=== PATIENT | female | born 1975 | race Caucasian/White ===

== ENCOUNTER 2016-03-01 08:31 | Outpatient (CLI) | payer OTHER | END 2016-03-01 08:32 | disposition home or self-care (01) | DX: F32.9 Major depressive disorder, single episode, unspecified (principal); E78.5 Hyperlipidemia, unspecified; E55.9 Vitamin D deficiency, unspecified ==

== ENCOUNTER 2017-03-29 08:27 | Outpatient (CLI) | payer OTHER ==
[2017-03-29 12:12] LABS: CALCIUM 8.4 mg/dL (8.5-10.3); CREATININE 0.8 mg/dL (0.4-1.0)
== END 2017-03-29 08:28 | disposition home or self-care (01) ==
LOC: LAB.F 08:27
PROVIDERS: ATTEND Family Medicine
DX: I10 Essential (primary) hypertension (principal)
CPT/HCPCS: 36415; 80048

== ENCOUNTER 2018-12-06 10:10 | Outpatient (CLI) | payer OTHER ==
[2018-12-06 10:20] LABS: HGB - HEMOGLOBIN 12.2 g/dL (12.0-16.0); MEAN CORPUSCULAR HEMOGLOBIN 28.7 pg (27.0-31.0); MEAN CORPUSCULAR HGB CONC 32.3 g/dL (32.0-36.0); MEAN CORPUSCULAR VOLUME 88.9 fL (81.0-99.0); MEAN PLATELET VOLUME 9.6 fL (7.9-10.8); RED BLOOD COUNT 4.25 10^6/uL (4.20-5.40); RED CELL DISTRIBUTION WIDTH 14.8 % (12.0-15.0); WHITE BLOOD COUNT 5.7 x10^3/uL (4.8-10.8)
== END 2018-12-06 10:11 | disposition home or self-care (01) ==
LOC: LAB 10:10
PROVIDERS: ATTEND Obstetrics & Gynecology
DX: N92.0 Excessive and frequent menstruation with regular cycle (principal)
CPT/HCPCS: 36415; 85027

== ENCOUNTER 2018-12-12 17:35 | Outpatient (CLI) | payer OTHER ==
--- NOTE | 2018-12-12 20:43 | Ultrasound Report ---
Reason: MENORRHAGIA, DYSMENORRHEA Procedure Date: 12/12/2018 Accession Number: [id number] / [id number] Procedure: US - Pelvic w/Transvaginal CPT Code: FULL RESULT: EXAM: PELVIC ULTRASOUND EXAM DATE: 12/12/2018 06:30 PM. CLINICAL HISTORY: MENORRHAGIA, DYSMENORRHEA. COMPARISON: OB 09/07/2005 9:48 AM. TECHNIQUE: Realtime transabdominal pelvic scan performed to identify the uterus and adnexa and as an overview of other pelvic structures, followed by transvaginal scan to provide greater detail of the uterus and adnexa, with static image documentation. FINDINGS: Uterus: 11.0 x 4.6 x 5.6 cm, volume under 53 cc. Anteverted position. Normal overall size and echotexture. Masses: None. Endometrium: 1.3 mm. Within the endometrial cavity, there is a ovoid hyperechoic polypoid mass that measures 2.1 x 0.7 x 0.6 cm. No obvious vascularity to the lesion. Cervix: Some nabothian cysts. Right Ovary: 2.7 x 2.0 x 2.6 cm, volume 7.5 cc. Normal echotexture and blood flow. Left Ovary: 4.5 x 2.2 x 2.4 cm, volume 12.3 cc. Normal echotexture and blood flow. Only seen transabdominally. Free Fluid: None. Other: None. IMPRESSION: 2.1 cm hyperechoic polypoid lesion within the endometrium probably represent endometrial polyp. Overall background endometrium does not appear thickened. RADIA
== END 2018-12-12 17:36 | disposition home or self-care (01) ==
LOC: DI 17:35
PROVIDERS: ATTEND Obstetrics & Gynecology
DX: N85.9 Noninflammatory disorder of uterus, unspecified (principal)
CPT/HCPCS: 76830; 76856

== ENCOUNTER 2018-12-25 15:18 | Outpatient (CLI) | payer OTHER ==
[2018-12-25 15:54] LABS: CALCIUM 9.1 mg/dL (8.5-10.3); CREATININE 1.1 mg/dL (0.4-1.0)
== END 2018-12-25 15:19 | disposition home or self-care (01) ==
LOC: LAB 15:18
PROVIDERS: ATTEND Obstetrics & Gynecology
DX: Z01.818 Encounter for other preprocedural examination (principal); N92.0 Excessive and frequent menstruation with regular cycle
CPT/HCPCS: 36415; 80048; 86850; 86900; 86901

== ENCOUNTER 2018-12-26 09:13 | Day surgery (SDC) | payer OTHER ==
[~2018-12-26 09:13] MED LIST: CEFAZOLIN SODIUM IN 0.9 % NACL 2 GM/100 ML BAG IV ONE
[2018-12-26] MEDS ORDERED: DEXAMETHASONE 4 MG/ML VIAL IVP ONE (09:14)
[2018-12-26] MEDS ORDERED: fentaNYL 100 MCG/2 ML VIAL IVP ONE (09:14)
[2018-12-26] MEDS ORDERED: KETOROLAC 30 MG/ML VIAL IVP ONE (09:14)
[2018-12-26] MEDS ORDERED: MIDAZOLAM 2 MG/2 ML VIAL IVP ONE (09:14)
[2018-12-26] MEDS ORDERED: PROPOFOL 200 MG/20 ML VIAL IVP ONE (09:14)
[2018-12-26] MEDS ORDERED: LACTATED RINGERS 1,000 ML IV ONE (09:18)
[2018-12-26 09:32] LABS: HCG UR QUAL NEGATIVE
[2018-12-26] MEDS ORDERED: LIDOCAINE 1%-EPI 1:100000 20 ML MDV ONE (09:50)
--- NOTE | 2018-12-26 09:50 | ANESTHESIA ---
Pre-Anesthesia VS, & Labs - Diagnosis menorrhagia - Procedure hysterscopy with D&C Vital Signs: Temp Pulse Resp BP Pulse Ox 36 C L 92 16 107/91 H 97 12/26/18 09:25 12/26/18 09:25 12/26/18 09:25 12/26/18 09:25 12/26/18 09:25 Height 5 ft 11 in Weight (kg) 152 kg - NPO >8 hours - Is Patient ?: No Home Medications and Allergies Home Medications: Ambulatory Orders Cholecalciferol (Vitamin D3) [Vitamin D3] 2,000 unit PO DAILY 12/17/18 Mirtazapine [Remeron] 15 mg PO QPM 12/17/18 Multivitamin [Multiple Vitamins] 1 each PO DAILY 12/17/18 Citalopram [CeleXA] 30 mg PO DAILY 08/29/12 Cholecalciferol (Vitamin D3) [Vitamin D3] 2,000 unit PO DAILY 12/17/18 Mirtazapine [Remeron] 15 mg PO QPM 12/17/18 Multivitamin [Multiple Vitamins] 1 each PO DAILY 12/17/18 Allergies/Adverse Reactions: Allergies Allergy/AdvReac Type Severity Reaction Status Date / Time No Known Drug Allergies Allergy Unverified 08/28/12 11:23 Anes History & Medical History - Anesthetic History Anesthesia Complications: reports: No previous complications - Medical History Cardiovascular: reports: None Pulmonary: reports: None Gastrointestinal: reports: None, Other (BMI>40) Urinary: reports: None Neuro: reports: None Musculoskeletal: reports: None Endocrine/Autoimmune: reports: None Blood Disorders: reports: None Skin: reports: None Smoking Status: Never smoker Psychosocial: reports: Depression - Surgical History Gynecologic: Tubal ligation Exam General: Alert, Oriented x3, Cooperative, No acute distress Dental: WNL Mouth Openin Fingerbreadth Neck Mobility: Normal Mallampati classification: I Thyromental Distance: greater than 6 cm Respiratory: Lungs clear, Normal breath sounds, No respiratory distress, No accessory muscle use Cardiovascular: Regular rate, Normal S1, Normal S2, No murmurs Mental/Cognitive Status: Alert/Oriented X3, Normal for patient Plan Anesthesia Type: General Consent for Procedure(s) Verified and Reviewed: Yes Code Status: Attempt Resuscitation ASA classification: 2-Mild systemic disease Is this case an emergency?: No
[2018-12-26 09:52] LABS: CREATININE 0.8 mg/dL (0.4-1.0)
[2018-12-26] MEDS ORDERED: LIDOCAINE MPF 2%-EPI 1:200000 20 ML VIAL ONE (10:09)
--- NOTE | 2018-12-26 11:21 | OPERATIVE REPORT ---
Operative Report - General Procedure Date: 12/26/18 Planned Procedure: Hysterscopy with removal of endometrial polyp Pre-Op Diagnosis: menorrhagia, endometrial Procedure Performed: Hysterscopy with removal of endometrial polyp Post Op Diagnosis: menorrhagia, endometrial - Procedure Note Primary Surgeon: Castillo Adams MD Anesthesia Provider: Tenzin Vasquez CRNA Anesthesia Technique: General LMA Pathology: endometrial polyps IV Fluids (mL): 500 Estimated Blood Loss (mL): 50 Indications: endometrial polyps Complications: fluid deficit 440 - Other Other Information/Narrative: Dictation # [id number]
[2018-12-26] MEDS ORDERED: oxyCODONE 5 MG TABLET PO PRN (11:34)
[2018-12-26] MEDS ORDERED: LORazepam 2 MG/ML VIAL IVP PRN (11:34)
[2018-12-26] MEDS ORDERED: ONDANSETRON 4 MG/2 ML VIAL IVP PRN (11:34)
[2018-12-26] MEDS ORDERED: HYDROmorphone 0.5 MG/0.5 ML SYRINGE IVP PRN (11:34)
--- NOTE | 2018-12-26 11:57 | OPERATIVE REPORT ---
DATE OF SERVICE: 12/26/2018 Physician: Castillo Adams MD PREOPERATIVE DIAGNOSIS: Menorrhagia, suspect endometrial polyps. POSTOPERATIVE DIAGNOSIS: Menorrhagia, suspect endometrial polyps. PROCEDURE PERFORMED 1. Hysteroscopy with dilatation and curettage. 2. Resection of endometrial polyps. SURGEON: Castillo Adams MD ANESTHESIA: General via LMA with Tenzinspeedy Vasquez. ESTIMATED BLOOD LOSS: Less than 50 mL IV FLUIDS: 500 mL HYSTEROSCOPIC FLUID DEFICIT: 440 mL FINDINGS: Pelvic examination under anesthesia revealed a uterus, which is roughly 8 cm in size, is anteverted. PROCEDURE IN DETAIL: Uterus was sounded to 8 cm. Upon introducing the hysteroscope, there were numerous endometrial polyps arising from both anterior, posterior, as well as left cornual area. Following adequate anesthesia with LMA, patient was placed in the supine position. She was then placed in Naeem stirrups. At this point, she was prepped and draped in the usual fashion. A timeout was performed, which concerns were addressed. A speculum was placed in the vagina. The cervix was visualized, grasped with a single-tooth tenaculum anteriorly. The cervix was noted to be tightly closed. It was dilated up to 4 mm and then a uterine sound was sounded to 8 cm. The cervix was then dilated up to 6 cm. Unable to pass the resectoscope so it was then dilated up to 7 mm. The video hysteroscope was placed without difficulty. At this point, there were numerous polyps encountered in the endometrial cavity. The right cornu was easily visualized; however, the left cornu was obscured with endometrial polyps. The MyoSure heavy was then introduced through the canal and the entire cavity was curetted and the polyps were removed without difficulty. The endometrial cavity was re- visualized and the cavity was empty of any endometrial polyps. The corneas were also visualized and noted to be clear. At this point, the procedure was terminated. The cervix was released from the single-tooth tenaculum. Speculum was removed. Patient tolerated the procedure well and was taken to recovery in stable condition. Sponge and needle counts were correct. TD: 12/26/2018 11:36 MTDD
[2018-12-26 12:04] VITALS: BP 141/81
== END 2018-12-26 09:14 | disposition home or self-care (01) ==
LOC: SDS 09:13
PROVIDERS: ATTEND Obstetrics & Gynecology
PROC: 0UDB8ZZ Extraction of Endometrium, Via Natural or Artificial Opening Endoscopic (ICD-10-PCS; 2018-12-26)
PROC: 0UB98ZZ Excision of Uterus, Via Natural or Artificial Opening Endoscopic (ICD-10-PCS; principal; 2018-12-26 14:30)
DX: N84.0 Polyp of corpus uteri (principal); N92.0 Excessive and frequent menstruation with regular cycle; E66.9 Obesity, unspecified; Z68.42 Body mass index [BMI] 45.0-49.9, adult; Z98.51 Tubal ligation status; Z86.79 Personal history of other diseases of the circulatory system
CPT/HCPCS: 36415; 58558; 80048; 81025; A9270; J0690; J7120; 86850; 86900; 86901

== ENCOUNTER 2019-07-18 07:47 | Outpatient (CLI) | payer OTHER ==
[2019-07-18 08:27] LABS: ALBUMIN 3.8 g/dL (3.2-5.5); ALBUMIN/GLOBULIN RATIO 1.2 (1.0-2.2); ALKALINE PHOSPHATASE 58 IU/L (42-121); ALT ALANINE AMINOTRANSFERASE 15 IU/L (10-60); AST ASPARTATE AMINOTRANSFERASE 16 IU/L (10-42); BILIRUBIN,TOTAL 0.4 mg/dL (0.2-1.0); BUN - BLOOD UREA NITROGEN 13 mg/dL (6-20); CARBON DIOXIDE - CO2 27 mmol/L (21-32); CHLORIDE 104 mmol/L (101-111); CHOL/HDL RATIO 5.6 (<4.4); CHOLESTEROL 212 mg/dL; CREATININE 0.9 mg/dL (0.4-1.0); GLUCOSE 105 mg/dL (70-100); HDL CHOLESTEROL 38 mg/dL; LDL CHOLESTEROL,CALCULATED 136 mg/dL; LDL/HDL RATIO 3.6 (<4.4); SODIUM 140 mmol/L (135-145); TOTAL PROTEIN 6.9 g/dL (6.7-8.2); VLDL CHOLESTEROL 38 mg/dL
[2019-07-18 08:49] LABS: BASOPHILS % (AUTO) 0.7 %; EOSINOPHILS # (AUTO) 0.2 10^3/uL (0.0-0.7); HGB - HEMOGLOBIN 12.2 g/dL (12.0-16.0); LYMPHOCYTES # (AUTO) 2.7 10^3/uL (1.5-3.5); MEAN CORPUSCULAR HEMOGLOBIN 26.8 pg (27.0-31.0); MEAN CORPUSCULAR HGB CONC 30.7 g/dL (32.0-36.0); MEAN CORPUSCULAR VOLUME 87.1 fL (81.0-99.0); MEAN PLATELET VOLUME 10.7 fL (7.9-10.8); MONOCYTES # (AUTO) 0.2 10^3/uL (0.0-1.0); MONOCYTES % (AUTO) 4.5 %; NEUTROPHILS # (AUTO) 2.2 10^3/uL (1.5-6.6); NEUTROPHILS % (AUTO) 40.6 %; PLT - PLATELET COUNT 331 10^3/uL (130-450); RED BLOOD COUNT 4.56 10^6/uL (4.20-5.40); RED CELL DISTRIBUTION WIDTH 14.6 % (12.0-15.0); WHITE BLOOD COUNT 5.4 x10^3/uL (4.8-10.8)
== END 2019-07-18 07:48 | disposition home or self-care (01) ==
LOC: LAB 07:47
PROVIDERS: ATTEND Registered Nurse
DX: I10 Essential (primary) hypertension (principal); E78.00 Pure hypercholesterolemia, unspecified; F33.41 Major depressive disorder, recurrent, in partial remission
CPT/HCPCS: 36415; 80053; 80061; 83721; 84443; 85025

== ENCOUNTER 2019-12-08 08:13 | Outpatient (CLI) | payer OTHER ==
[2019-12-08 08:52] LABS: INR 1.1 (0.8-1.2); PT - PROTHROMBIN TIME 12.6 secs (9.9-12.6)
[2019-12-08 08:53] LABS: BASOPHILS % (AUTO) 0.5 %; EOSINOPHILS # (AUTO) 0.2 10^3/uL (0.0-0.7); EOSINOPHILS % (AUTO) 2.4 %; HGB - HEMOGLOBIN 12.5 g/dL (12.0-16.0); LYMPHOCYTES # (AUTO) 2.5 10^3/uL (1.5-3.5); LYMPHOCYTES % (AUTO) 40.3 %; MEAN CORPUSCULAR HGB CONC 32.3 g/dL (32.0-36.0); MEAN CORPUSCULAR VOLUME 86.6 fL (81.0-99.0); MEAN PLATELET VOLUME 10.4 fL (7.9-10.8); MONOCYTES # (AUTO) 0.4 10^3/uL (0.0-1.0); MONOCYTES % (AUTO) 6.4 %; NEUTROPHILS # (AUTO) 3.1 10^3/uL (1.5-6.6); NEUTROPHILS % (AUTO) 50.2 %; PLT - PLATELET COUNT 329 10^3/uL (130-450); RED BLOOD COUNT 4.47 10^6/uL (4.20-5.40); RED CELL DISTRIBUTION WIDTH 14.3 % (12.0-15.0); WHITE BLOOD COUNT 6.2 x10^3/uL (4.8-10.8)
[2019-12-08 09:03] LABS: PARTIAL THROMBOPLASTIN TIME 30.1 secs (24.9-33.3)
[2019-12-08 09:25] LABS: % IRON SATURATION 11 % (20-50); IRON 40 ug/dL (28-170); TOTAL IRON BINDING CAPACITY 360 ug/dL (250-450); TRANSFERRIN 257 mg/dL (192-382)
[2019-12-08 09:42] LABS: FERRITIN 9.5 ng/mL (11.0-306.8); HEMOGLOBIN A1c% 5.5 % (4.27-6.07)
[2019-12-08 09:46] LABS: FOLATE 10.39 ng/mL (5.90 - >24.8)
== END 2019-12-08 08:14 | disposition home or self-care (01) ==
LOC: LAB 08:13
PROVIDERS: ATTEND Surgery
DX: Z01.812 Encounter for preprocedural laboratory examination (principal); E63.9 Nutritional deficiency, unspecified; E55.9 Vitamin D deficiency, unspecified
CPT/HCPCS: 36415; 81599; 82306; 82607; 82728; 82746; 83036; 83540; 84425; 84466; 85025; 85610; 85730

== ENCOUNTER 2020-02-24 19:01 | Outpatient (CLI) | payer OTHER | END 2020-02-24 19:02 | disposition home or self-care (01) | LOC: COV 19:01 | PROVIDERS: ATTEND Family Medicine | DX: R07.0 Pain in throat (principal); Z20.822 Contact with and (suspected) exposure to COVID-19 ==

== ENCOUNTER 2020-07-14 08:33 | Outpatient (CLI) | payer OTHER ==
[2020-07-14 09:13] LABS: BASOPHILS % (AUTO) 0.8 %; EOSINOPHILS # (AUTO) 0.2 10^3/uL (0.0-0.7); EOSINOPHILS % (AUTO) 2.9 %; HGB - HEMOGLOBIN 13.2 g/dL (12.0-16.0); LYMPHOCYTES # (AUTO) 2.4 10^3/uL (1.5-3.5); LYMPHOCYTES % (AUTO) 46.6 %; MEAN CORPUSCULAR HEMOGLOBIN 29.8 pg (27.0-31.0); MEAN CORPUSCULAR VOLUME 90.3 fL (81.0-99.0); MEAN PLATELET VOLUME 10.7 fL (7.9-10.8); MONOCYTES # (AUTO) 0.3 10^3/uL (0.0-1.0); MONOCYTES % (AUTO) 5.3 %; NEUTROPHILS # (AUTO) 2.3 10^3/uL (1.5-6.6); NEUTROPHILS % (AUTO) 44.2 %; PLT - PLATELET COUNT 298 10^3/uL (130-450); RED BLOOD COUNT 4.43 10^6/uL (4.20-5.40); RED CELL DISTRIBUTION WIDTH 13.2 % (12.0-15.0); WHITE BLOOD COUNT 5.1 x10^3/uL (4.8-10.8)
[2020-07-14 09:21] LABS: INR 1.1 (0.8-1.2); PT - PROTHROMBIN TIME 12.3 secs (9.9-12.6)
[2020-07-14 09:29] LABS: PARTIAL THROMBOPLASTIN TIME 28.5 secs (24.9-33.3)
[2020-07-14 09:37] LABS: ALBUMIN/GLOBULIN RATIO 1.4 (1.0-2.2); ALKALINE PHOSPHATASE 47 IU/L (42-121); ALT ALANINE AMINOTRANSFERASE 15 IU/L (10-60); AST ASPARTATE AMINOTRANSFERASE 14 IU/L (10-42); BILIRUBIN,TOTAL 0.5 mg/dL (0.2-1.0); BUN - BLOOD UREA NITROGEN 14 mg/dL (6-20); CALCIUM 8.7 mg/dL (8.5-10.3); CARBON DIOXIDE - CO2 24 mmol/L (21-32); CHLORIDE 108 mmol/L (101-111); CHOLESTEROL 217 mg/dL; CREATININE 0.9 mg/dL (0.4-1.0); GFR - MDRD 68 (>89); GLUCOSE 111 mg/dL (70-100); HDL CHOLESTEROL 36 mg/dL; LDL CHOLESTEROL,CALCULATED 144 mg/dL; POTASSIUM 3.6 mmol/L (3.5-5.0); SODIUM 138 mmol/L (135-145); TOTAL PROTEIN 6.9 g/dL (6.7-8.2); TRIGLYCERIDES 186 mg/dL; VLDL CHOLESTEROL 37 mg/dL
[2020-07-14 09:41] LABS: % IRON SATURATION 22 % (20-50); IRON 67 ug/dL (28-170); TOTAL IRON BINDING CAPACITY 305 ug/dL (250-450); TRANSFERRIN 218 mg/dL (192-382)
[2020-07-14 09:48] LABS: FREE T3 4.07 pg/mL (2.5-3.9)
[2020-07-14 09:51] LABS: FERRITIN 23.5 ng/mL (11.0-306.8)
[2020-07-14 09:54] LABS: FOLATE 7.62 ng/mL (5.90 - >24.8)
[2020-07-14 09:57] LABS: THYROID STIMULATING HORMONE 0.91 uIU/mL (0.34-5.60)
[2020-07-14 12:34] LABS: ESTIMATED AVERAGE GLUCOSE 108 mg/dL (70-100); HEMOGLOBIN A1c% 5.4 % (4.27-6.07)
== END 2020-07-14 08:34 | disposition home or self-care (01) ==
LOC: LAB 08:33
PROVIDERS: ATTEND Registered Nurse
DX: Z01.812 Encounter for preprocedural laboratory examination (principal); E46 Unspecified protein-calorie malnutrition; E55.9 Vitamin D deficiency, unspecified; I10 Essential (primary) hypertension; F33.41 Major depressive disorder, recurrent, in partial remission; E78.00 Pure hypercholesterolemia, unspecified
CPT/HCPCS: 36415; 80053; 80061; 82306; 82607; 82728; 82746; 83036; 83540; 83721; 84425; 84443; 84466; 84481; 85025; 85610; 85730

== ENCOUNTER 2020-08-12 08:43 | Outpatient (CLI) | payer OTHER ==
--- NOTE | 2020-08-13 12:16 | Mammography Report ---
BILATERAL DIGITAL SCREENING MAMMOGRAM 3D/2D: 08/12/2020 CLINICAL: Baseline exam. Routine screening. No prior exams were available for comparison. There are scattered fibroglandular elements in both br easts. No significant masses, calcifications, or other findings are seen in either breast. IMPRESSION: NEGATIVE There is no mammographic evidence of malignancy. A 1 year screening mammogram is recommended. This exam was interpreted at Station ID: [id number]. NOTE: For mammograms, a report in lay terms will be sent to the patient. Approximately 15% of breast malignancies will not be visualized mammographically. In the management of a palpable breast mass, a negative mammogram must not discourage biopsy of a clinically suspicious lesion. Electronically Signed By: Popeye frost/florian:08/12/2020 09:43:26 ACR BI-RADS Category 1: Negative 3341F PARENCHYMAL PATTERN: (A) - The breast(s) demonstrate(s) scattered fibroglandular densities. BI-RADS CATEGORY: (1) - 1 RECOMMENDATION: (ANNUAL) - Recommend routine annual screening mammography. [id number] 1 year screening LATERALITY: (B)
== END 2020-08-12 08:44 | disposition home or self-care (01) ==
LOC: DI 08:43
PROVIDERS: ATTEND Advanced Practice Midwife
DX: Z12.31 Encounter for screening mammogram for malignant neoplasm of breast (principal)

== ENCOUNTER 2021-01-05 09:18 | Outpatient (CLI) | payer OTHER ==
[2021-01-05 09:49] LABS: BASOPHILS % (AUTO) 0.4 %; EOSINOPHILS # (AUTO) 0.2 10^3/uL (0.0-0.7); HCT - HEMATOCRIT 40.1 % (37.0-47.0); LYMPHOCYTES # (AUTO) 2.1 10^3/uL (1.5-3.5); LYMPHOCYTES % (AUTO) 42.6 %; MEAN CORPUSCULAR HEMOGLOBIN 29.7 pg (27.0-31.0); MEAN CORPUSCULAR HGB CONC 32.4 g/dL (32.0-36.0); MEAN CORPUSCULAR VOLUME 91.8 fL (81.0-99.0); MEAN PLATELET VOLUME 10.4 fL (7.9-10.8); MONOCYTES # (AUTO) 0.3 10^3/uL (0.0-1.0); NEUTROPHILS # (AUTO) 2.5 10^3/uL (1.5-6.6); NEUTROPHILS % (AUTO) 48.8 %; PLT - PLATELET COUNT 298 10^3/uL (130-450); RED BLOOD COUNT 4.37 10^6/uL (4.20-5.40); RED CELL DISTRIBUTION WIDTH 12.8 % (12.0-15.0)
[2021-01-05 10:14] LABS: % IRON SATURATION 20 % (20-50); ALBUMIN 4.1 g/dL (3.2-5.5); ALBUMIN/GLOBULIN RATIO 1.5 (1.0-2.2); ALKALINE PHOSPHATASE 55 IU/L (42-121); ALT ALANINE AMINOTRANSFERASE 15 IU/L (10-60); AST ASPARTATE AMINOTRANSFERASE 17 IU/L (10-42); BILIRUBIN,TOTAL 0.7 mg/dL (0.2-1.0); BUN - BLOOD UREA NITROGEN 15 mg/dL (6-20); CALCIUM 9.1 mg/dL (8.5-10.3); CARBON DIOXIDE - CO2 30 mmol/L (21-32); CHLORIDE 105 mmol/L (101-111); CHOL/HDL RATIO 5.2 (<4.4); CHOLESTEROL 206 mg/dL; CREATININE 0.8 mg/dL (0.4-1.0); GFR - MDRD 78 (>89); GLUCOSE 101 mg/dL (70-100); HDL CHOLESTEROL 40 mg/dL; IRON 66 ug/dL (28-170); LDL CHOLESTEROL,CALCULATED 137 mg/dL; LDL/HDL RATIO 3.4 (<4.4); POTASSIUM 4.2 mmol/L (3.5-5.0); SODIUM 142 mmol/L (135-145); TOTAL IRON BINDING CAPACITY 330 ug/dL (250-450); TOTAL PROTEIN 6.9 g/dL (6.7-8.2); TRANSFERRIN 236 mg/dL (192-382); TRIGLYCERIDES 143 mg/dL; VLDL CHOLESTEROL 29 mg/dL
[2021-01-05 10:24] LABS: THYROID STIMULATING HORMONE 0.73 uIU/mL (0.34-5.60)
[2021-01-05 10:29] LABS: FERRITIN 18.9 ng/mL (11.0-306.8)
[2021-01-05 10:36] LABS: FOLATE 20.46 ng/mL (5.90 - >24.8)
[2021-01-05 11:51] LABS: ESTIMATED AVERAGE GLUCOSE 103 mg/dL (70-100); HEMOGLOBIN A1c% 5.2 % (4.27-6.07)
== END 2021-01-05 09:19 | disposition home or self-care (01) ==
LOC: LAB 09:18
PROVIDERS: ATTEND Surgery
DX: E46 Unspecified protein-calorie malnutrition (principal); E66.01 Morbid (severe) obesity due to excess calories; Z98.84 Bariatric surgery status
CPT/HCPCS: 36415; 80053; 80061; 82306; 82607; 82728; 82746; 83036; 83540; 83721; 84425; 84443; 84466; 85025

== ENCOUNTER 2021-12-07 15:55 | Outpatient (CLI) | payer OTHER ==
--- NOTE | 2021-12-08 11:47 | Ultrasound Report ---
PROCEDURE: Pelvic w/Transvaginal INDICATIONS: ENDOMETRIAL POLYP. Cramping, heavy periods. TECHNIQUE: Real-time scanning was performed of the pelvic organs, with image documentation. Additional endovagi nal scanning was necessary due to incomplete visualization of the adnexal and endometrial structures by transabdominal scanning. COMPARISON: Pelvic ultrasound 12/12/2018. FINDINGS: Uterus: Uterus is anteverted and prominent in size at 2.3 x 6.7 x 6.1 cm. The myometrium is homogen eous. The endometrium measures 12 mm in combined thickness. Redemonstrated ovoid hyperechoic struct ure at the uterine cavity/endometrium measures 2.1 x 0.9 x 1.0 cm, previously 2.1 x 0.6 x 0.7 cm, sim ilar to slightly increased. Ovaries: The right ovary measures 4.7 x 2.3 x 2.7 cm, with a calculated ovarian volume of 15 cc. Th e left ovary measures 3.5 x 3.0 x 2.0 cm, with a calculated ovarian volume of 11 cc. The ovaries hav e a normal sonographic appearance. Less than 12 follicles can be seen in each ovary. No adnexal mas ses are seen. Other: No pathologic free abdominal or pelvic fluid. IMPRESSION: 1. Previously demonstrated ovoid structure at the uterine cavity/endometrium which could represent an endometrial polyp persists, similar to slightly increased in size. 2. Unremarkable sonographic appearance of the ovaries Reviewed by: Al Amezcua MD on 12/08/2021 11:46 AM PDT Approved by: Al Amezcua MD on 12/08/2021 11:46 AM PDT Station ID: [id number]
== END 2021-12-07 15:56 | disposition home or self-care (01) ==
LOC: DI 15:55
PROVIDERS: ATTEND Nurse Practitioner
DX: N84.0 Polyp of corpus uteri (principal); N92.0 Excessive and frequent menstruation with regular cycle; N94.6 Dysmenorrhea, unspecified

== ENCOUNTER 2021-12-23 14:36 | Outpatient (CLI) | payer OTHER ==
--- NOTE | 2021-12-23 16:16 | Ultrasound Report ---
PROCEDURE: Retroperitoneal INDICATIONS: CHRONIC KIDNEY DISEASE, STAGE 2 TECHNIQUE: Real-time scanning was performed of the retroperitoneal organs, with image documentation. COMPARISON: None. FINDINGS: Kidneys: Kidneys are normal in size. Right kidney measures 10.6 cm long; left kidney measures 11.5 cm long. Right renal cortical thickness is 1.3 cm; left renal cortical thickness is 1.3 cm. No hydr onephrosis, or nephrolithiasis. Focus of increased echogenicity is present in the left kidney measuri ng 8 x 5 x 6 mm as well as a second similar focus measuring 8 x 8 x 8 mm. Simple left renal parapelvi c cysts. Bladder: Pre-void bladder volume is 472 mL. Post-void residual is 20 mL. Pre-void images demonstra te no intraluminal masses or stones. On pre-void images, lateral ureteral jets are noted with color Doppler interrogation. (Of note, ureteral jets may not be detectable in up to 25% of cases due to in sufficient differences in specific gravity between ureteral and bladder urine). Miscellaneous: No free abdominal fluid. IMPRESSION: Subcentimeter foci of increased echogenicity within the left kidney suggestive of small angiomyolipom as. Recommend interval follow-up in 6 and 12 months. Reviewed by: Jackie Barajas MD on 12/23/2021 4:14 PM PST Approved by: Jackie Barajas MD on 12/23/2021 4:14 PM PST Station ID: [id number]
== END 2021-12-23 14:37 | disposition home or self-care (01) ==
LOC: DI 14:36
PROVIDERS: ATTEND Physician Assistant
DX: N18.2 Chronic kidney disease, stage 2 (mild) (principal); R93.422 Abnormal radiologic findings on diagnostic imaging of left kidney

== ENCOUNTER 2022-02-22 07:14 | Day surgery (SDC) | payer OTHER ==
[~2022-02-22 07:14] MED LIST changes: +ACETAMINOPHEN 1,000 MG/100 ML 1,000 MG/100 ML BAG IV ONE; -CEFAZOLIN SODIUM IN 0.9 % NACL 2 GM/100 ML BAG IV ONE
[2022-02-22] MEDS ORDERED: BUPIVACAINE 0.5% PF 30 ML VIAL ONE (07:26)
[2022-02-22] MEDS ORDERED: METHYLENE BLUE 0.5% 50 MG/10 ML AMPULE ONE (07:26)
[2022-02-22] MEDS ORDERED: LIDOCAINE MPF 2%-EPI 1:200000 20 ML VIAL ONE (07:26)
[2022-02-22] MEDS ORDERED: SUGAMMADEX 200 MG/2 ML VIAL IVP ONE (07:30)
[2022-02-22] MEDS ORDERED: DEXAMETHASONE 4 MG/ML VIAL ONE (07:30)
[2022-02-22] MEDS ORDERED: PROPOFOL 200 MG/20 ML VIAL IVP ONE (07:30)
[2022-02-22] MEDS ORDERED: ROCURONIUM 50 MG/5 ML VIAL ONE ×2 (07:30→09:00)
[2022-02-22] MEDS ORDERED: MIDAZOLAM 2 MG/2 ML VIAL ONE (07:30)
[2022-02-22] MEDS ORDERED: fentaNYL 100 MCG/2 ML VIAL ONE ×2 (07:30→10:21)
[2022-02-22] MEDS ORDERED: KETOROLAC 30 MG/ML VIAL ONE (07:30)
[2022-02-22] MEDS ORDERED: ONDANSETRON 4 MG/2 ML VIAL ONE ×2 (07:30→11:55)
[2022-02-22] MEDS ORDERED: LIDOCAINE-PF 2% 10 ML AMP SUBQ ONE (07:30)
[2022-02-22] MEDS ORDERED: LACTATED RINGERS 1,000 ML IV ONE ×2 (07:37→12:16)
[2022-02-22 07:49] LABS: BASOPHILS % (AUTO) 0.9 %; EOSINOPHILS # (AUTO) 0.1 10^3/uL (0.0-0.7); EOSINOPHILS % (AUTO) 3.2 %; HCT - HEMATOCRIT 37.3 % (37.0-47.0); LYMPHOCYTES # (AUTO) 2.1 10^3/uL (1.5-3.5); LYMPHOCYTES % (AUTO) 47.8 %; MEAN CORPUSCULAR HEMOGLOBIN 29.1 pg (27.0-31.0); MEAN CORPUSCULAR HGB CONC 32.2 g/dL (32.0-36.0); MEAN CORPUSCULAR VOLUME 90.3 fL (81.0-99.0); MEAN PLATELET VOLUME 9.9 fL (7.9-10.8); MONOCYTES # (AUTO) 0.3 10^3/uL (0.0-1.0); MONOCYTES % (AUTO) 5.7 %; NEUTROPHILS # (AUTO) 1.9 10^3/uL (1.5-6.6); NEUTROPHILS % (AUTO) 42.4 %; PLT - PLATELET COUNT 269 10^3/uL (130-450); RED BLOOD COUNT 4.13 10^6/uL (4.20-5.40); RED CELL DISTRIBUTION WIDTH 13.5 % (12.0-15.0); WHITE BLOOD COUNT 4.4 x10^3/uL (4.8-10.8)
[2022-02-22] MEDS ORDERED: NALOXONE 0.4 MG/ML VIAL IVP PRN (07:49)
[2022-02-22] MEDS ORDERED: ONDANSETRON 4 MG/2 ML VIAL IVP PRN (07:49)
[2022-02-22] MEDS ORDERED: fentaNYL 100 MCG/2 ML VIAL IVP PRN (07:49)
[2022-02-22] MEDS ORDERED: MORPHINE 2 MG/ML CARPUJECT IVP PRN (07:49)
[2022-02-22] MEDS ORDERED: ePHEDrine 50 MG/ML VIAL IVP PRN (07:49)
[2022-02-22] MEDS ORDERED: ATROPINE ABBOJECT 1 MG/10 ML SYRINGE IVP PRN (07:49)
[2022-02-22] MEDS ORDERED: HYDROmorphone 0.5 MG/0.5 ML SYRINGE IVP PRN (07:49)
--- NOTE | 2022-02-22 07:49 | ANESTHESIA ---
Pre-Anesthesia VS, & Labs - Diagnosis endometrial polyp, menorrhagia - Procedure [facility] Vital Signs: Temp Pulse Resp BP Pulse Ox O2 Flow Rate 36.0 C L 85 18 144/80 H 97 02/22/22 07:23 02/22/22 07:23 02/22/22 07:23 02/22/22 07:23 02/22/22 07:23 Height: 5 ft 11 in Weight (kg): 122 kg Body Mass Index: 37.5 BMI Classification: Obese - NPO >8 hours - Is Patient ?: No Home Medications and Allergies Home Medications: Ambulatory Orders Ibuprofen [Motrin] 600 mg PO Q6H PRN 02/18/22 Omeprazole 20 mg PO PRN PRN 02/18/22 Active Medications Cefazolin Sodium 3 gm/ Sodium (Chloride) 50 mls @ 100 mls/hr IV ONCE ONE Stop: 02/22/22 08:29 Citalopram [CeleXA] 30 mg PO DAILY 08/29/12 Cholecalciferol (Vitamin D3) [Vitamin D3] 2,000 unit PO DAILY 12/17/18 Mirtazapine [Remeron] 15 mg PO QPM PRN 12/17/18 Multivitamin [Multiple Vitamins] 1 each PO DAILY 12/17/18 Ibuprofen [Motrin] 600 mg PO Q6H PRN 02/18/22 Omeprazole 20 mg PO PRN PRN 02/18/22 Allergies/Adverse Reactions: Allergies Allergy/AdvReac Type Severity Reaction Status Date / Time adhesive tape Allergy Rash Verified 02/18/22 10:46 Anes History & Medical History - Anesthetic History Anesthesia Complications: reports: No previous complications Family history of Anesthesia Complications: Denies Family history of Malignant Hyperthermia: Denies - Medical History Cardiovascular: reports: None Pulmonary: reports: None Gastrointestinal: reports: GERD Urinary: reports: None Neuro: reports: None Musculoskeletal: reports: None Endocrine/Autoimmune: reports: None Blood Disorders: reports: None Skin: reports: None Smoking Status: Never smoker - Surgical History General: reports: Gastric surgery Gynecologic: reports: Tubal ligation, Other Exam General: Alert, Oriented x3, Cooperative Dental: WNL Mouth Openin Fingerbreadth Neck Mobility: Normal Mallampati classification: I Thyromental Distance: 4-6 cm Respiratory: Lungs clear Cardiovascular: Regular rate Plan Anesthesia Type: General Consent for Procedure(s) Verified and Reviewed: Yes Code Status: Attempt Resuscitation ASA classification: 2-Mild systemic disease Is this case an emergency?: No
[2022-02-22] MEDS ORDERED: LACTATED RINGERS 1,000 ML IV SCH (08:00)
[2022-02-22 08:12] LABS: HCG UR QUAL NEGATIVE
[2022-02-22] MEDS ORDERED: ePHEDrine 50 MG/ML VIAL IVP ONE (08:47)
[2022-02-22] MEDS ORDERED: HYDROmorphone 1 MG/ML CARPUJECT ONE (09:05)
[2022-02-22] MEDS ORDERED: LIDOCAINE MPF 2%-EPI 1:200000 20 ML VIAL SUBQ ONE ×2 (09:26)
[2022-02-22] MEDS ORDERED: BUPIVACAINE 0.5% PF 30 ML VIAL SUBQ ONE ×2 (09:27)
[2022-02-22] MEDS ORDERED: ESTROGENS, CONJUGATED CREAM 30 GM TUBE ONE (11:42)
--- NOTE | 2022-02-22 12:18 | OPERATIVE REPORT ---
Operative Report - General Procedure Date: 02/22/22 Planned Procedure: Total laparoscopic hysterectomy Bilateral salpingectomy Pre-Op Diagnosis: Heavy menstrual bleeding, endometrial polyps Procedure Performed: Total laparoscopic hysterectomy Bilateral salpingectomy Post Op Diagnosis: Heavy menstrual bleeding, endometrial polyps - Procedure Note Primary Surgeon: Michelle Day DO Secondary Surgeon: Sonja Campa MD; assistance required for retraction and safe completion Anesthesia Provider: Adilene Diaz CRNA Anesthesia Technique: General ET tube Pathology: Uterus, fallopian tubes Estimated Blood Loss (mL): 100 Urine Output (mL): 400 Indications: Heavy menstrual bleeding Bilateral fallopian tubes Findings: 10cm uterus Normal appearing uterus, tubes, ovaries Fallopian tubes with clips from sterilization procedure Complications: None - Other Other Information/Narrative: Patient taken to OR where GETA obtained without difficulty. Patient was then examined and found to have small anteverted uterus with normal adnexa. Placed in dorsal lithotomy position and prepped and draped in sterile fashion. Wooldridge speculum placed in vagina and anterior lip of cervix grasped with single tooth tenaculum. 3.0 uterine manipulator advincula wet cotton feeder advanced into uterus. Speculum and tenaculum removed. Attention then turned to abdomen where 5mm skin incision made in umbilical fold. Veress needle carefully introduced into peritoneal cavity. Intraperitoneal placement confirmed with drop test and drop in intraabdominal pressure with CO2 gas insufflation. Trocar and sleeve advanced without difficulty into abdomen where intraabdominal placement confirmed with laparoscope. Two additional 5mm incisions made in pelvis bilaterally and trocars introduced under direct visualization. lidocaine/epinephrine/bupivacaine injection prior to skin incisions x3. Aforementioned findings noted. Right fallopian tube grasped and LigaSure device used for transection along mesosalpinx. This was repeated on the left fallopian tube. Tubes removed through left 5mm port. Ovarian ligament transected bilaterally with LigaSure. Hemostasis noted. Dissection was carried down to uterine arteries bilaterally with LigaSure. Anterior leaf of broad ligament and bladder flap was created with Ligasure. L hook cautery was used to amputate cervix. Hemostasis ensured. Uterus removed vaginally. Vaginal cuff closed vaginally with series of figure of eight 0 vicryl sutures. Hemostasis noted. Attention then returned to abdomen. Vaginal cuff hemostatic. Pelvis irrigated and suctioned. Hemostasis at all dissection sites. Trocars removed under direct visualization. Pneumoperitoneum released. Umbilical trocar removed. 5mm incisions x3 were closed with 4-0 monocryl and dermabond. Cystoscopy then performed. Jets noted from ureteral orifices bilaterally. No bleeding, sutures or defects noted in bladder. Vaginal cuff sutures cut. Sponge, lap, needle, and instrument counts were correct x2. Patient taken to PACU in stable condition.
[2022-02-22] MEDS ORDERED: HYDROmorphone 0.5 MG/0.5 ML SYRINGE ONE (12:42)
--- NOTE | 2022-02-22 13:59 | ANESTHESIA POST OP EVALUATION ---
Anesthesia Post Eval - Post Anesthesia Eval Vitals: Last Vital Signs Temp 36.6 C 02/22/22 13:15 Pulse 81 02/22/22 13:45 Resp 14 02/22/22 13:45 BP 146/77 H 02/22/22 13:45 Pulse Ox 100 02/22/22 13:45 O2 Flow Rate CV Function Including HR & BP: Stable Pain Control: Satisfactory Nausea & Vomiting: Negative Mental Status: Baseline Respiratory Status: Airway Patent Hydration Status: Satisfactory Anesthesia Complications: None
[2022-02-22] MEDS ORDERED: IBUPROFEN 800 MG TABLET PO SCH (14:00)
[2022-02-22] MEDS ORDERED: ACETAMINOPHEN 500 MG TABLET PO SCH (14:00)
[2022-02-22] MEDS ORDERED: traMADol 50 MG TABLET PO SCH (16:00)
[2022-02-22 17:38] VITALS: BP 153/77
== END 2022-02-22 18:00 | disposition home or self-care (01) ==
LOC: SDS 07:14 → EDSTATUS 08:30 → FBP 12:10 → SDS 18:00
PROVIDERS: ATTEND Obstetrics & Gynecology
PROC: 0UT94ZZ Resection of Uterus, Percutaneous Endoscopic Approach (ICD-10-PCS; principal; 2022-02-22 07:30)
PROC: 0UT74ZZ Resection of Bilateral Fallopian Tubes, Percutaneous Endoscopic Approach (ICD-10-PCS; 2022-02-22 07:30)
DX: N92.0 Excessive and frequent menstruation with regular cycle (principal); N84.0 Polyp of corpus uteri; E66.9 Obesity, unspecified; Z68.37 Body mass index [BMI] 37.0-37.9, adult
CPT/HCPCS: 36415; 58571; 81025; 85025; 86850; 86900; 86901; A9270; J0131; J1170; J7040; J7120

== ENCOUNTER 2022-08-23 07:53 | Outpatient (CLI) | payer OTHER ==
[2022-08-23 08:12] LABS: BASOPHILS % (AUTO) 0.6 %; EOSINOPHILS # (AUTO) 0.2 10^3/uL (0.0-0.7); EOSINOPHILS % (AUTO) 3.1 %; HCT - HEMATOCRIT 39.8 % (37.0-47.0); HGB - HEMOGLOBIN 13.1 g/dL (12.0-16.0); LYMPHOCYTES # (AUTO) 2.1 10^3/uL (1.5-3.5); LYMPHOCYTES % (AUTO) 42.3 %; MEAN CORPUSCULAR HEMOGLOBIN 29.7 pg (27.0-31.0); MEAN CORPUSCULAR HGB CONC 32.9 g/dL (32.0-36.0); MEAN CORPUSCULAR VOLUME 90.2 fL (81.0-99.0); MEAN PLATELET VOLUME 10.4 fL (7.9-10.8); MONOCYTES # (AUTO) 0.3 10^3/uL (0.0-1.0); MONOCYTES % (AUTO) 5.3 %; NEUTROPHILS # (AUTO) 2.4 10^3/uL (1.5-6.6); NEUTROPHILS % (AUTO) 48.5 %; PLT - PLATELET COUNT 281 10^3/uL (130-450); RED BLOOD COUNT 4.41 10^6/uL (4.20-5.40); RED CELL DISTRIBUTION WIDTH 13.4 % (12.0-15.0); WHITE BLOOD COUNT 4.9 x10^3/uL (4.8-10.8)
[2022-08-23 08:31] LABS: % IRON SATURATION 19 % (20-50); ALBUMIN 3.9 g/dL (3.2-5.5); ALBUMIN/GLOBULIN RATIO 1.3 (1.0-2.2); ALKALINE PHOSPHATASE 48 IU/L (42-121); ALT ALANINE AMINOTRANSFERASE 19 IU/L (10-60); AST ASPARTATE AMINOTRANSFERASE 17 IU/L (10-42); BILIRUBIN,TOTAL 0.6 mg/dL (0.2-1.0); BUN - BLOOD UREA NITROGEN 17 mg/dL (6-20); CARBON DIOXIDE - CO2 28 mmol/L (21-32); CHLORIDE 108 mmol/L (101-111); CHOL/HDL RATIO 4.1 (<4.4); CHOLESTEROL 222 mg/dL; CREATININE 0.9 mg/dL (0.4-1.0); GFR - MDRD 67 (>89); GLUCOSE 99 mg/dL (70-100); HDL CHOLESTEROL 54 mg/dL; IRON 72 ug/dL (28-170); LDL CHOLESTEROL,CALCULATED 147 mg/dL; LDL/HDL RATIO 2.7 (<4.4); POTASSIUM 4.1 mmol/L (3.5-5.0); SODIUM 141 mmol/L (135-145); TOTAL IRON BINDING CAPACITY 375 ug/dL (250-450); TRANSFERRIN 268 mg/dL (192-382); TRIGLYCERIDES 103 mg/dL; VLDL CHOLESTEROL 21 mg/dL
[2022-08-23 08:40] LABS: THYROID STIMULATING HORMONE 0.66 uIU/mL (0.34-5.60)
[2022-08-23 08:47] LABS: FERRITIN 13.4 ng/mL (11.0-306.8)
[2022-08-23 08:51] LABS: FOLATE 15.74 ng/mL (5.90 - >24.8)
[2022-08-23 11:37] LABS: ESTIMATED AVERAGE GLUCOSE 108 mg/dL (70-100); HEMOGLOBIN A1c% 5.4 % (4.27-6.07)
== END 2022-08-23 07:54 | disposition home or self-care (01) ==
LOC: LAB 07:53
PROVIDERS: ATTEND Surgery
DX: E63.9 Nutritional deficiency, unspecified (principal); K90.9 Intestinal malabsorption, unspecified; Z98.84 Bariatric surgery status
CPT/HCPCS: 36415; 80053; 80061; 82306; 82607; 82728; 82746; 83036; 83540; 83721; 84425; 84443; 84466; 85025

== ENCOUNTER 2023-08-16 15:39 | Outpatient (CLI) | payer OTHER ==
--- NOTE | 2023-08-16 16:40 | Sleep Patient Instructions ---
Sleep Center Visit Summary - Patient Visit Information Reason for Visit: Initial consult for evaluation of sleep disordered breathing and other sleep issues. - Patient Instructions Instructions Attached: Sleep Study, Sleep Study Home Monitor Additional Instructions: You will be completing a sleep study, either an in-lab polysomnography (PSG) or home sleep study (HST). You will follow-up in the sleep care office after the sleep study is completed to hear the results and talk about therapy, if needed. You will be called by our office staff to schedule this appointment, but you may contact us with any questions. - Clinic Information Contact: [facility] [address] [place] [id number] [email or web address] T: [phone]
--- NOTE | 2023-08-16 16:43 | SLEEP CARE CONSULTATION ---
Information from patient questionnaire entered by Christina De. I have reviewed and concur with the information entered by Christina De. This document represents the service I personally performed and the decisions made by me, Regina Tong ARNP. History of Present Illness Service Date and Time: 08/16/2023 1539 Reason for Visit: New patient Chief Complaint: reports: Insomnia, Fatigue Date of Onset: 20+YRS Usual bedtime: [id number] Time it takes to fall asleep: 45+MINS Snores at night: Yes (but not since losing weight after bariatric surgery in 2019) Observed to quit breathing while asleep: No Number of times waking at night: 1-2 Reasons for waking at night: reports: Other (UNKNOWN). denies: Choking, Gasping for air Toss, Turn, or Twitch while sleeping: Yes Recalls having dreams: No Usually gets out of bed at: 0600 Feels refreshed in the morning: No Morning headache: No Sleepy or fatigued during the day: Yes Ever fallen asleep while driving: No Takes day naps: No Dreams during day naps: No Prior sleep studies: No Additional HPI information: I had the pleasure of seeing ZAC CODY today regarding the possibility of her having a sleep disorder. Her current complaints are insomnia and fatigue. She says she takes Trazodone 50-100 mg nightly to help her go to sleep. She says she has been on Ambien, mirtazepine in the past. If she does not take the medication it takes her a couple hours to go to sleep, with the trazodone it is still 1-1.5 hours. Once she gets to sleep she is able to stay asleep. She lays down about 9 PM and gets to sleep 10-11 PM and then get up about 6 AM. She does not wake up feeling rested. She lost weight after bariatric surgery in 2019, gastric sleeve. She has lost about 80 lbs. She used to snore but she no longer does since losing the weight. She does not take naps. 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 Patient is Single and lives in [place]. Have you smoked in the past 12 months: No Alcohol use: Yes Alcohol amount and frequency: 1-2DRINKS 1X MONTH Caffeine use: Yes Caffeine amount and frequency: 2 DAILY Family History Family history of sleep disordered breathing: Yes (Uncle with sleep apnea) Family Hx Sleep Apnea: Father: Snoring, Grandparent: Snoring Allergies and Home Medications Known drug allergies: No (adhesive tape) Drug allergies reviewed: Yes Home medication list reviewed: Yes (as listed in EMR) Allergy and home medication list: Allergies adhesive tape Allergy (Verified 08/14/23 11:28) Rash Review of Systems Weight loss over past 5 years: 80 Cardiovascular: denies: high blood pressure Gastrointestinal: reports: heartburn Neurological: denies: headaches Psychiatric: reports: anxiety, depression Ear/Nose/Throat: reports: nose bleeds, wisdom teeth removed. denies: tonsillectomy Musculoskeletal: reports: back pain Immunologic: reports: allergies to food or environment Physical Exam Vital signs obtained and entered by: CHRISTINA Nuñez MA Blood Pressure: 157/91 (RIGHT ARM) Cuff size: long Heart Rate: 69 O2 Saturation: 99 Height: 5 ft 10 in Weight: 283 lb 12.8 oz Body Mass Index: 40.7 BMI Classification: Morbidly Obese Neck circumference: 14.5 Mouth and throat: narrow oropharynx Soft palate: long Hard palate: normal Uvula: normal Uvula visualization: 100% Mallampati Class I Tongue: enlarged in size with teeth rawls on lateral edges Tonsils: 1+ Neck: normal w/o lymphadenopathy or thyromegaly Heart: regular rate and rhythm Lungs: clear bilaterally Impression and Plan 1. Suspected Obstructive Sleep Apnea-Hypopnea Syndrome, as suggested by a history of irregular snoring, unrefreshed sleep, and insomnia. Narrow oropharynx and obesity are common predisposing factors for obstructive sleep apnea-hypopnea syndrome. I recommend proceeding to polysomnography to confirm the diagnosis and to assess severity. If the patient has significant sleep disordered breathing, a manual CPAP titration study will also be performed to find the optimal treatment pressure. I informed the patient of what the sleep studies involve and after some discussion, obtained agreement to proceed. The pathophysiology of obstructive sleep apnea-hypopnea syndrome was discussed with the patient and health risks of cardiovascular and cerebrovascular disease if not treated. Risks of drowsy driving discussed in detail and patient advised to avoid long distance driving and to hand assembler for puller over at the first sign of drowsiness. Patient agreed to plan. * Schedule polysomnography * Avoid long distance driving or driving when feeling sleepy. * Avoid alcohol, sedative and muscle relaxant around bedtime. * Continue to try to lose weight. * Review instructions provided by trained office staff on how to prepare for the sleep study. * Return for follow-up after sleep study completed. Counseling Topics: Weight loss health impact Plan: Sleep study and followup Visit Type: In Office Time Spent with Patient (minutes): 30 Provider Statement: I spent 100% of the Face to Face Visit with the patient with greater than 50% spent counseling the patient and coordination of care.
[2023-08-16 16:44] VITALS: BP 157/91; O2SAT 99
== END 2023-08-16 15:40 | disposition home or self-care (01) ==
LOC: SC 15:39
PROVIDERS: ATTEND Nurse Practitioner Family
DX: G47.00 Insomnia, unspecified (principal); R06.83 Snoring; G47.8 Other sleep disorders; Z98.84 Bariatric surgery status; Z79.899 Other long term (current) drug therapy; E66.01 Morbid (severe) obesity due to excess calories; Z68.41 Body mass index [BMI] 40.0-44.9, adult
CPT/HCPCS: 99203; 99212

== ENCOUNTER 2023-09-08 13:54 | Outpatient (CLI) | payer OTHER | END 2023-09-08 13:55 | disposition home or self-care (01) | LOC: SC 13:54 | PROVIDERS: ATTEND Nurse Practitioner Family | DX: G47.10 Hypersomnia, unspecified (principal); R53.83 Other fatigue; G47.8 Other sleep disorders; G47.00 Insomnia, unspecified; E66.9 Obesity, unspecified; F32.A Depression, unspecified | CPT/HCPCS: 95806 ==

== ENCOUNTER 2023-10-06 14:24 | Outpatient (CLI) | payer OTHER ==
--- NOTE | 2023-10-06 14:48 | Sleep Patient Instructions ---
Sleep Center Visit Summary - Patient Visit Information Reason for Visit: Sleep study follow-up - Patient Instructions Instructions Attached: Snoring Tips Prevent Additional Instructions: Your sleep study today was negative for significant sleep disordered breathing. You were found to have episodes of snoring. There are different ways to control snoring including weight loss, oral devices made by a dentist or surgical options through ENT specialist. You should not use oral devices that do not fit properly because they can affect your bite. You should also check insurance coverage of oral devices for snoring because they may not be cover well. You may obtain a referral to an ENT specialist through your primary provider. Follow-up as needed. - Clinic Information Contact: [facility] [address] [place] [address] [email or web address] T: [phone]
--- NOTE | 2023-10-06 14:50 | SLEEP CARE CONSULTATION ---
Information from patient questionnaire entered by Margareth Holloway. I have reviewed and concur with the information entered by Margareth Holloway. This document represents the service I personally performed and the decisions made by , Regina Tong ARNP. History of Present Illness Service Date and Time: 10/06/2023 1424 Initial [place] Sleepiness Scale score: 1 (08/16/23) Current [place] Sleepiness Scale score: 3 (10/06/23) Additional HPI information: ZAC CODY returns for follow up and results of the recently performed home sleep study on 09/08/2023. The patient was informed of the following findings: No significant sleep disordered breathing with an average AHI of 1.2 and david oxygen saturation of 89%. I explained the pathophysiology behind obstructive sleep apnea. Patient does not have sleep apnea and was advised how weight gain could increase the risk of developing sleep apnea in the future. I strongly encouraged the patient to lose weight. Patient has mild snoring. Snoring can be reduced by weight loss. Weight loss is best achieved with diet consult. Patient instructed to contact PCP for referral. Snoring can also be treated with an oral appliance from a dentist. Advised to check insurance coverage. In addition, an ENT evaluation can be do to see if other treatment is indicated. Patient counseled not drink alcohol less than 4 hours before bedtime as it can increase snoring and apnea. Patient was cautioned about risks of drowsy driving until sleepiness symptoms resolve. Patient denies drowsy driving. Sleep Study - Results Type of Sleep Study: Home sleep study Prior sleep studies: No Year and Where: 2023 [facility] Polysomnography/Home Sleep Study results: Physician Impression: The quality of the study is good. The length of the study is adequate (> 240 minutes). Please also see the tabulated and graphic data. 1. No significant sleep disordered breathing, with an AHI of 1.2/hr and david SaO2 of 89%. During the study, the patient had 2 apneas (2 obstructive, 0 central, 0 mixed) and 7 hypopneas. The longest episode lasted 84.5 seconds. The was very limited supine sleep (supine AHI was 0.0 and non-supine, 1.23). Allergies and Home Medications Known drug allergies: Yes (as listed) Drug allergies reviewed: Yes Home medication list reviewed: Yes (no changes) Allergy and home medication list: Allergies adhesive tape Allergy (Verified 08/16/23 15:41) Rash Review of Systems Review of systems same as previous: Yes (no changes) Physical Exam Vital signs obtained and entered by: MAYRA Tapia Blood Pressure: 156/88 Cuff size: long (right arm) Heart Rate: 66 O2 Saturation: 100 Height: 5 ft 10 in Weight: 282 lb 9.6 oz Body Mass Index: 40.5 BMI Classification: Morbidly Obese Impression and Plan 1. Snoring but no significant sleep disordered breathing. However, patient did not sleep supine so supine sleep disordered breathing could not be ruled out. Patient advised that often weight loss will reduce snoring as well as apnea risk. An oral appliance can also be used for snoring. This would require a dental consultation. Patient cautioned not to use other online appliances as can cause bite issues. Patient is advised to check if insurance will cover. An ENT consult can also be helpful to determine if any other treatment is an option. 2. Obesity, unspecified. Currently patients BMI is 40.5. Obesity increases the risk of apnea, CPAP pressure requirements and overall health risks especially cardiovascular and diabetes. Thus patient is advised to lose weight. She has a history of anxiety and depression. * Attempt to lose weight * Avoid alcohol consumption near bedtime * Return as needed for follow up. Counseling Topics: Weight loss health impact Follow up with Sleep Care in: as needed Visit Type: In Office Time Spent with Patient (minutes): 15 Provider Statement: I spent 100% of the Face to Face Visit with the patient with greater than 50% spent counseling the patient and coordination of care.
[2023-10-06 14:56] VITALS: BP 156/88; O2SAT 100
== END 2023-10-06 14:25 | disposition home or self-care (01) ==
LOC: SC 14:24
PROVIDERS: ATTEND Nurse Practitioner Family
DX: R06.83 Snoring (principal); E66.01 Morbid (severe) obesity due to excess calories; Z68.41 Body mass index [BMI] 40.0-44.9, adult
CPT/HCPCS: 99212